=== PATIENT | female | born 1960 | race Hispanic/Latino ===

== ENCOUNTER 2016-09-17 09:16 | Emergency (ER) | payer OTHER ==
[~2016-09-17] VITALS: Ht 162.6 cm; Wt 72.6 kg
[~2016-09-17 09:16] MED LIST: AMARYL4 M1 PO; AUGMENTIN 875 M1 TAB PO; BYETTA5 MCG/0.02 SC; CLARITIN10 M1 PO; COLACE100 M1 PO; COUMADIN5 M2 PO; DILAUDID2 M1 PO; GUAFENESIN400 MG PO; IRON325 M3 PO; LANTUS100 UNIT/1 SC; LISINOPRIL2.5 M1 PO; MEDROL DOSEPAK1 PAC PO; METFORMIN HCL850 M1 PO; NASONEX0.05 MG/Ac NAS; PERCOCET 5-3251 EACH PO; ROBITUSSIN W/CO10 ML PO; SINGULAIR10 M1 PO; SULFAMETHOXAZO1 EAC1 PO; SYMBICORT 16010.2 GM INH; TAMIFLU 75MG75 MG PO; TESSALON PERLE100 MG PO; VALIUM5 M2 PO; VITAMIN D250000 UNIT PO
--- NOTE | 2016-09-17 10:07 | ED ANIMAL BITE/WOUND CHECK ---
History of Present Illness General Chief Complaint: Suture Removal/Wound Recheck Stated Complaint: SUTURE REMOVAL Source: patient, old records Exam Limitations: no limitations Vital Signs & Intake/Output Vital Signs & Intake/Output Vital Signs Date Time Temp Pulse Resp B/P Pulse O2 O2 Flow FiO2 Ox Delivery Rate 09/17 1009 98.6 85 18 122/84 98 Room Air Allergies Coded Allergies: NO KNOWN ALLERGIES (10/06/14) Reconcile Medications Budesonide/Formoterol Fumarate (Symbicort 160-4.5 Mcg Inhaler) (Unknown Strength ) HFA.AER.AD 2 PUFF INH BID RESPIRATORY (Reported) Diazepam (Valium) 5 MG TABLET 1 TAB PO Q8P PRN SPASMS Docusate Sodium (Colace) 100 MG CAPSULE 1 CAP PO BID CONSTIPATION HOLD FOR LOOSE BOWEL MOVEMENTS Ergocalciferol (Vitamin D2) (Vitamin D2) 50,000 UNIT CAPSULE 1 CAP PO QSAT SUPPLEMENT (Reported) Exenatide (Byetta) 5 MCG/0.02 ML PEN.INJCTR 5 MCG SC BID DIABETES (Reported) Ferrous Sulfate (IRON) 325 MG TABLET 1 TAB PO DAILY SUPPLEMENT (Reported) Glimepiride (Amaryl) 4 MG TABLET 1 TAB PO DAILY DIABETES (Reported) Hydromorphone HCl (Dilaudid) 2 MG TABLET 1 TAB PO Q4P PRN PAIN Insulin-Lantus (Lantus) 100 UNIT/1 ML VIAL 30 UNITS SC QPM DIABETES (Reported ) Lisinopril 2.5 MG TABLET 1 TAB PO DAILY BP (Reported) Loratadine (Claritin) 10 MG TABLET 1 TAB PO DAILY ALLERGIES (Reported) Metformin HCl 850 MG TABLET 1 TAB PO TID DIABETES (Reported) Montelukast Sodium (Singulair) 10 MG TABLET 1 TAB PO DAILY ALLERGIES/ RESPIRATORY (Reported) Oxycodone HCl/Acetaminophen (Percocet 5-325 MG Tablet) 5 MG-325 MG TABLET 1 TAB PO BID PRN pain Warfarin Sodium (Coumadin) 5 MG TABLET 1 TAB PO DAILY BLOOD THINNER DOSE FOR inr BETWEEN 2 AND 3 Triage Note: PT HERE FOR SUTURE REMOVAL FROM ABOVE LEFT EYE. PT REPORTS SUTURES PLACED LAST SUNDAY Triage Nurses Notes Reviewed? yes HPI: 8 days status post sutures placed the left forehead after a fall. She is here for suture removal She has no complaints. (KALEY JOHNSON,VIVIANE) Past History Travel History Traveled to [place] past 21 day No Medical History Any Pertinent Medical History? 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 No (VIVIANE VALLADARES) Review of Systems Review of Systems Constitutional: Reports: see HPI. EENTM: Reports: no symptoms. Respiratory: Reports: no symptoms. Cardiovascular: Reports: no symptoms. GI: Reports: no symptoms. Genitourinary: Reports: no symptoms. Musculoskeletal: Reports: no symptoms. Skin: Reports: see HPI. Neurological/Psychological: Reports: no symptoms. Hematologic/Endocrine: Reports: no symptoms. Immunologic/Allergic: Reports: no symptoms. All Other Systems: Reviewed and Negative (VIVIANE VALLADARES) Physical Exam Physical Exam General Appearance: well developed/nourished Comments: Well-developed well-nourished no apparent distress. HEENT: Resolving ecchymosis noted to the bilateral infraorbital region of the forehead region. Healing laceration noted to the forehead with [address] with large amount of scab noted at laceration site. Extraocular motion intact Neck: Supple, no lymphadenopathy Back: Nontender Respiratory: No respiratory distress Extremities: No edema, full range of motion Neuro: Alert and oriented x3 Psych: Mood affect normal, normal memory normal judgment. Skin: Warm and dry, no rash on exposed skin (VIVIANE VALLADARES) Progress Differential Diagnosis: abscess, cellulitis, joint infection, tenosysnovitis Plan of Care: Skin hot to removed to get sutures out, minimal bleeding occurred, wound was cleansed and Steri-Strips applied. 2 sutures were removed and patient tolerated well without complications. (VIVIANE VALLADARES) Departure Departure Disposition: HOME OR SELF CARE Condition: Stable Clinical Impression Primary Impression: Visit for suture removal Referrals: TAYLER SHEEHAN MD (PCP/Family) Referred to [facility] as new patient No Additional Instructions: Leave the Steri-Strips on until they fall off Watch for any signs of redness swelling discharge or pain. Return with any concerns Departure Forms: Customer Survey General Discharge Information (KALEY JOHNSON,VIVIANE) PA/WHIZZER Co-Sign Statement Statement: ED Attending supervision documentation- [] I saw and evaluated the patient. I have also reviewed all the pertinent lab results and diagnostic results. I agree with the findings and the plan of care as documented in the PA's/WHIZZER's documentation. [X] I have reviewed the ED Record and agree with the PA's/WHIZZER's documentation. [] Additions or exceptions (if any) to the PAs/WHIZZER's note and plan are summarized below: [] (MARCO WASHBURN,RADHA)
[2016-09-17 10:09] VITALS: BP 122/84
== END 2016-09-17 10:10 ==
LOC: ERH 09:16
DX: Z48.02 Encounter for removal of sutures (principal)
CPT/HCPCS: 99281

== ENCOUNTER 2016-12-23 16:41 | Emergency (ER) | payer OTHER ==
[~2016-12-23] VITALS: Ht 162.6 cm; Wt 72.6 kg
[2016-12-23] MEDS ORDERED: ASPIRIN EC81 M1 PO (18:57)
[2016-12-23] MEDS ORDERED: NAPROXEN500 M2 PO (18:58)
[2016-12-23] MEDS ORDERED: LIDOCAINE1 EACH TOP (18:59)
[2016-12-23] MEDS ORDERED: AZITHROMYCIN250 M1 PO (19:38)
--- NOTE | 2016-12-23 19:39 | ED INFLUENZA/URI COMPLAINT ---
History of Present Illness General Chief Complaint: Upper Respiratory Sx/Fever Stated Complaint: HEADACHE,THROAT AND EAR PAIN Source: patient Exam Limitations: no limitations Allergies Coded Allergies: No Known Allergies (12/23/16) Triage Note: TRIAGE: PT TO ER C/C SEASONAL ALLERGY TYPE S/S WITH NON STOP WATERY EYES, ITCHING NOSE. STATES TRIED TO BUT OTC MEDS "BUT EVERYTHING SAID NOT TO TAKE IF YOU'RE A DIABETIC". PT HX DM. Triage Nurses Notes Reviewed? yes HPI: This patient is a 56-year-old female who presented to the emergency department today for evaluation of upper respiratory symptoms. She reported that her symptoms began on with sneezing. Her symptoms have progressed to include watery eyes, nasal congestion, facial pressure, bilateral ear pain, throat pain, and a dry cough. She reported chills. She denied any fevers, chest pain, difficulty reading come back pain, abdominal pain, nausea, vomiting, or diarrhea. (CARMEN LOYA,COSME) Vital Signs & Intake/Output Vital Signs & Intake/Output Vital Signs Date Time Temp Pulse Resp B/P Pulse O2 O2 Flow FiO2 Ox Delivery Rate 12/24 2003 98.0 77 18 128/76 99 Room Air 12/23 1852 Room Air 12/23 1714 98.1 76 20 128/75 95 Room Air ED Intake and Output 12/24 0000 12/23 1200 Intake Total Output Total Balance Patient 160 lb Weight Reconcile Medications Aspirin (Ecotrin*) 81 MG TABLET.DR 1 TAB PO DAILY HEART/BLOOD (Reported) Azithromycin 250 MG TABLET 1 DP PO AD SINUSITIS 2 the first day followed by 1 for days 2-5 Budesonide/Formoterol Fumarate (Symbicort 160-4.5 Mcg Inhaler) (Unknown Strength ) HFA.AER.AD 2 PUFF INH BID RESPIRATORY (Reported) Ergocalciferol (Vitamin D2) (Vitamin D2) 50,000 UNIT CAPSULE 1 CAP PO QSAT SUPPLEMENT (Reported) Exenatide (Byetta) 5 MCG/0.02 ML PEN.INJCTR 5 MCG SC BID DIABETES (Reported) Glimepiride (Amaryl) 4 MG TABLET 1 TAB PO DAILY DIABETES (Reported) Insulin-Lantus (Lantus) 100 UNIT/1 ML VIAL 30 UNITS SC QPM DIABETES (Reported ) Lidocaine 5 % ADH..PATCH 1 PAT TOP PRN PAIN (Reported) Lisinopril 2.5 MG TABLET 1 TAB PO DAILY BP (Reported) Metformin HCl 850 MG TABLET 1 TAB PO TID DIABETES (Reported) Montelukast Sodium (Singulair) 10 MG TABLET 1 TAB PO DAILY ALLERGIES/ RESPIRATORY (Reported) Naproxen 500 MG TABLET 1 TAB PO BID PRN PAIN/INFLAMMATION (Reported) (DANIA WASHBURN,SINGH) Past History Travel History Traveled to [place] past 21 day No Medical History Any Pertinent Medical History? 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 No (COSME MORALES PA-C) Review of Systems Review of Systems Constitutional: Reports: see HPI. EENTM: Reports: see HPI. Respiratory: Reports: see HPI. Cardiovascular: Reports: no symptoms. GI: Reports: no symptoms. Genitourinary: Reports: no symptoms. Musculoskeletal: Reports: no symptoms. Skin: Reports: no symptoms. Neurological/Psychological: Reports: no symptoms. All Other Systems: Reviewed and Negative (COSME MORALES PA-C) Physical Exam Physical Exam Ears, Nose, Throat: FLUID BEHIND BILATERAL tm WITH NO ERYTHEMA OR BULGING. bILATERAL EXTERNAL AUDITORY CANALS NONERYTHEMATOUS, NONEDEMATOUS, AND WITHOUT ANY DEBRIS. nOSE ATRAUMATIC. nASAL CONGESTION NOTED. pHARYNGEAL INJECTION WITHOUT ANY ORAL PHARYNGEAL LESIONS OR EDEMA. nO TONSILLAR EXUDATES. nO TRISMUS OR DROOLING. nO MANDIBULAR OR MAXILLARY EDEMA Comments: Well-developed well-nourished person in no acute distress HEENT: Head normocephalic, moist mucous membranes Pupils equally round and reactive to light. Neck: Supple, no lymphadenopathy Back: Normal gait Respiratory: No respiratory distress. Speaking in full sentences Extremity: Normal and equal pulses Neuro: Alert oriented x3, cranial nerves II through XII grossly intact. Skin: No appreciable rash on exposed skin, skin is warm and dry. Psych: Mood and affect is normal Core Measures Severe Sepsis Present: No Septic Shock Present: No (COSME MORALES PA-C) Progress Differential Diagnosis: influenza, meningitis, neutropenia, otitis, pneumonia, pharyngitis, sinusitis Plan of Care: Orders Procedure Date/time Status THROAT CULTURE W/QUICK STREP 12/23 1859 Active Initial ED EKG: none (COSME MORALES PA-C) Departure Departure Disposition: HOME OR SELF CARE Condition: Stable Clinical Impression Primary Impression: Sinusitis Qualifiers: Sinusitis location: unspecified location Chronicity: unspecified Qualified Code: J32.9 - Chronic sinusitis, unspecified Referrals: TAYLER SHEEHAN MD (PCP/Family) Additional Instructions: Take antibiotic as prescribed and for its full duration. Rest and stay hydrated. Return for any worsening symptoms or concerns. Departure Forms: Customer Survey General Discharge Information Prescriptions: Current Visit Scripts Azithromycin 1 DP PO AD #6 TAB 2 the first day followed by 1 for days 2-5 (COSME MORALES PA-C) PA/BAND SAW OPERATOR Co-Sign Statement Statement: ED Attending supervision documentation- [] I saw and evaluated the patient. I have also reviewed all the pertinent lab results and diagnostic results. I agree with the findings and the plan of care as documented in the PA's/BAND SAW OPERATOR's documentation. x I have reviewed the ED Record and agree with the PA's/BAND SAW OPERATOR's documentation. [] Additions or exceptions (if any) to the PAs/BAND SAW OPERATOR's note and plan are summarized below: [] (DANIA WASHBURN,SINGH)
[2016-12-23 20:04] VITALS: BP 128/76
== END 2016-12-23 20:05 ==
LOC: ERH 16:41
DX: J32.9 Chronic sinusitis, unspecified (principal)